=== PATIENT | female | born 1965 | race Caucasian/White ===

== ENCOUNTER 2016-11-23 18:21 | Emergency (ER) | payer OTHER ==
[~2016-11-23] VITALS: Ht 154.9 cm; Wt 61.4 kg
[~2016-11-23 18:21] MED LIST: BTLAI INJ; CAFF200T13 PO; CALCTAB5 PO; CYAN3INJ IM; DICL1GEL12 TOP; ERGO500037 PO; MULT-506 PO; NRN600 PO; POTA1080 PO; SODI650T8 PO; TRAZ100T29 PO; ZLF/100 PO
[2016-11-23 18:36] VITALS: TEMP 36.5; Ht 154.9 cm; Wt 61.4 kg
[2016-11-23] MEDS ORDERED: MoRPHine SULFATE 2 MG/ML CARP IV STA (20:28)
[2016-11-23] MEDS ORDERED: ONDANSETRON INJ 2 MG/ML 2 ML VIAL IV STA (20:28)
[2016-11-23] MEDS ORDERED: PRT/40 PO (20:38)
[2016-11-23] MEDS ORDERED: ONDA4TAB9 PO (20:39)
[2016-11-23] MEDS ORDERED: BSP15 PO (20:39)
[2016-11-23] MEDS ORDERED: VITAMIN B12 INJ INJ (20:46)
[2016-11-23] MEDS ORDERED: CALC-393 PO (20:46)
[2016-11-23 20:53] LABS: URINE APPEARANCE CLEAR (CLEAR); URINE BILIRUBIN NEG (NEG); URINE COLOR YELLOW; URINE NITRITE NEG (NEG); UROBILINOGEN NEG (NEG)
[2016-11-23 21:04] LABS: MANUAL MICROSCOPIC REQUIRED? NO; REVIEW REQ? NO
--- NOTE | 2016-11-23 21:14 | DIAGNOSTIC IMAGING REPORT ---
CT OF THE ABDOMEN AND PELVIS WITHOUT CONTRAST, STONE PROTOCOL CLINICAL HISTORY: Left flank pain. Evaluate for stone. COMPARISON STUDY: CT of the abdomen and pelvis June 24, 2015. TECHNIQUE: Helical axial images of the abdomen and pelvis were obtained without IV or oral contrast according to renal stone protocol. FINDINGS: There are a few punctate left renal calculi. There are no ureteral calculi. There is no hydronephrosis. Evaluation the remainder of the abdomen and pelvis is suboptimal on this unenhanced exam. There are findings consistent with a gastric bypass. There is no evidence for a bowel obstruction. The gallbladder surgically absent. Unenhanced images of liver, spleen, adrenal glands and pancreas are normal. No lymphadenopathy is present. There is no ascites. No suspicious skeletal lesions are identified. There is no perinephric infiltration. The appendix is not visualized. IMPRESSION: 1. Punctate left renal calculi. No ureteral calculi or hydronephrosis. 2. No acute process within the abdomen or pelvis on unenhanced exam. Electronically signed by: Kyle Jamison M.D. 11/23/2016 9:12 PM Dictated Date/Time: 11/23/2016 9:08 PM
[2016-11-23 22:04] LABS: BASO % 0.5 %; BASO ABS # 0.03 K/uL (0-0.2); COMPLETE YES; EOS % 8.1 %; HEMATOCRIT 37.4 % (37-47); IG% 0.3 %; LYMPH % 35.4 %; LYMPH ABS # 2.28 K/uL (1.2-3.4); MEAN CELL VOLUME 91.4 fL (80-100); MEAN CORPUSCULAR HEMOGLOBIN 31.8 pg (25-34); MEAN CORPUSCULAR HGB CONC 34.8 g/dl (32-36); MEAN PLATELET VOLUME 10.6 fL (7.4-10.4); MONO % 10.7 %; PLATELET COUNT 282 K/uL (130-400); RED BLOOD COUNT 4.09 M/uL (4.2-5.4); WHITE BLOOD COUNT 6.44 K/uL (4.8-10.8)
[2016-11-23 22:23] LABS: ALT/SGPT 34 U/L (12-78); BLOOD UREA NITROGEN 17 mg/dl (7-18); BUN/CREATININE RATIO 19.9 (10-20); CALCIUM 8.9 mg/dl (8.5-10.1); CARBON DIOXIDE 27 mmol/L (21-32); CHLORIDE 107 mmol/L (98-107); CREATININE 0.85 mg/dl (0.60-1.20); GLUCOSE 84 mg/dl (70-99); POTASSIUM 3.9 mmol/L (3.5-5.1); SODIUM 142 mmol/L (136-145)
[2016-11-23 22:26] LABS: ALKALINE PHOSPHATASE 52 U/L (45-117); AST/SGOT 26 U/L (15-37)
[2016-11-23] MEDS ORDERED: AMOX875T PO (22:48)
[2016-11-23] MEDS ORDERED: AMOXICILLIN/CLAVULANATE TAB 875 MG TAB PO ONE (23:00)
[2016-11-23] MEDS ORDERED: PERCOCET HOME PACK PO ONE (23:00)
[2016-11-23 23:22] VITALS: BP 103/59; PULSE 62; O2SAT 98
--- NOTE | 2016-11-23 23:59 | EMERGENCY ROOM VISIT NOTE ---
History Report prepared by Barakibe: Deepika Elaine Under the Supervision of: Dr. Bud Mullen M.D. First contact with patient: 20:20 Chief Complaint: ILLNESS Stated Complaint: BIG BITE ON EAR AND KIDNEY INFECTION History of Present Illness The patient is a 51 year old female who presents to the Emergency Room with complaints of persistent left sided flank pain for the past 2 weeks. She rates her pain as a 7/10 in severity and admits to a history of kidney stones and kidney infections. She denies any chance of being as she has undergone a hysterectomy. She states her urine has been dark in color and foul smelling. She has had urinary burning for about 2 weeks as well. She states she could not get into her doctor. She has been nauseous but has not vomited. The patient also complains of a possible bug bite on her left ear that occurred about 2 months ago. She states the area feels raised and has not improved at all since it first occurred. She denies any recent fevers. 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 A total of 10 systems reviewed and were otherwise negative. Past Medical & Surgical Medical Problems: (1) ADHD (attention deficit hyperactivity disorder) (2) BALDEV (acute kidney injury) (3) Anxiety (4) Anxiety disorder, unspecified (5) Aortic regurgitation (6) Chest pain (7) CKD (chronic kidney disease), stage III (8) Depression (9) Dyslipidemia (10) Fibromyalgia (11) GERD (gastroesophageal reflux disease) (12) History of gastric ulcer (13) Hx of Clostridium difficile infection (14) Kidney stone (15) Migraine (16) Oral thrush (17) Orthostatic hypotension (18) past med trials (19) Recurrent Clostridium difficile diarrhea Surgical Problems: (1) H/O esophagogastroduodenoscopy (2) H/O gastric bypass (3) H/O lumpectomy (4) History of hip surgery (5) History of ureter stent (6) S/P gastric bypass (7) S/P Lysis of Adhesions (8) S/P PATRICE (total abdominal hysterectomy) (9) Status post appendectomy (10) Status post cholecystectomy (11) Status post cholecystectomy Family History FH: cancer FHx: heart disease FATHER ([place] age 39) MOTHER ([place] age 57) Hypertension Kidney disease Kidney stones Seizures Stroke MOTHER (in 40s) Social History Smoking Status: Never Smoker Alcohol Use: none Drug Use: none Marital Status: Housing Status: lives with family Occupation Status: disabled Current/Historical Medications Scheduled Amoxicillin & Pot Clavulanate (Augmentin 875-125 mg), 875 MG PO BID Botulinum Toxin Type A (Botox), 1 DOSE INJ [id number] Buspirone HCl (Buspirone HCl), 15 MG PO BID Caffeine (Caffeine), 200 MG PO DAILY Calcium Carbonate (Calcium), 600 MG PO BID Ergocalciferol (Vitamin D 41378 Unit), 50,000 INTER.UNIT PO 2XWK Gabapentin (Gabapentin), 600 MG PO TID Multivitamin (Multivitamin), 1 TAB PO BID Pantoprazole (Pantoprazole Sodium), 40 MG PO DAILY Potassium Citrate (Alkalinizer (Potassium Citrate ER), 1,080 MG PO TID Sertraline HCl (Sertraline HCl), 100 MG PO DAILY Sodium Bicarbonate (Sodium Bicarbonate), 650 MG PO BID [Vitamin B12 Inj], 1 DOSE INJ MONTHLY Scheduled PRN Diclofenac Sodium (Topical) (Voltaren 1% Top Gel), 1 APPLN TOP TID PRN for Pain Ondansetron (Ondansetron HCl), 4-8 MG PO TID PRN for Nausea Trazodone Hcl (Trazodone), 200 MG PO HS PRN for Sleep Allergies Coded Allergies: Cephalexin (Verified Allergy, Severe, THROAT CLOSING, 09/04/16) RASH, HIVES Clindamycin (Verified Allergy, Severe, HIVES, 09/04/16) Hydromorphone (Verified Allergy, Severe, ANAPHYLAXIS, 09/04/16) NEEDS NARCAN Meperidine (Verified Allergy, Severe, ANAPHYLAXIS, 09/04/16) PER UNCODED ALLERGY PJ. MORPHINE 02/2015 Lactase (Verified Allergy, Intermediate, ., 09/04/16) Per Nurse: Lactaid was the only thing new and patient had rash and redness on her arms. Latex1 -Allergic Contact Dermititis (Verified Allergy, Intermediate, RASH , 09/04/16) Sulfa Antibiotics (Verified Allergy, Intermediate, rash and severe rash, 09/04/16) Metoclopramide (Verified Allergy, Unknown, 09/04/16) Physical Exam Vital Signs Date Time Temp Pulse Resp B/P Pulse Ox O2 Delivery O2 Flow Rate FiO2 11/23/16 23:22 62 16 103/59 98 Room Air 11/23/16 21:12 60 18 102/59 99 Room Air 11/23/16 18:36 36.5 71 18 116/75 98 Room Air Physical Exam Constitutional: Vital signs reviewed. Eyes: Pupils are equal round reactive to light. Conjunctiva are noninjected. ENT: Pharynx is clear without erythema or exudate. Mucous membranes are moist. Neck supple without meningeal signs. Respiratory: Clear to auscultation bilaterally. Breath sounds are equal bilaterally. Cardiovascular: Regular rate and rhythm. No rubs or gallops. GI: Soft, nondistended. LLQ tenderness, no guarding. Bowel sounds are present. Musculoskeletal: No peripheral edema. No lower extremity tenderness. No CVA tenderness. Integumentary: Subcentimeter erythematous lesion with excoriation, no surrounding cellulitis. Neurological: The patient is awake and alert. No focal deficits. Psychiatric: Normal affect. Medical Decision & Procedures ER Provider Diagnostic Interpretation: This CT scan was reviewed and interpreted by the radiologist and reviewed by myself. CT OF THE ABDOMEN AND PELVIS WITHOUT CONTRAST, STONE PROTOCOL CLINICAL HISTORY: Left flank pain. Evaluate for stone. COMPARISON STUDY: CT of the abdomen and pelvis June 24, 2015. TECHNIQUE: Helical axial images of the abdomen and pelvis were obtained without IV or oral contrast according to renal stone protocol. FINDINGS: There are a few punctate left renal calculi. There are no ureteral calculi. There is no hydronephrosis. Evaluation the remainder of the abdomen and pelvis is suboptimal on this unenhanced exam. There are findings consistent with a gastric bypass. There is no evidence for a bowel obstruction. The gallbladder surgically absent. Unenhanced images of liver, spleen, adrenal glands and pancreas are normal. No lymphadenopathy is present. There is no ascites. No suspicious skeletal lesions are identified. There is no perinephric infiltration. The appendix is not visualized. IMPRESSION: 1. Punctate left renal calculi. No ureteral calculi or hydronephrosis. 2. No acute process within the abdomen or pelvis on unenhanced exam. Electronically signed by: Kyle Jamison M.D. 11/23/2016 9:12 PM Laboratory Results 11/23/16 21:50 Red Blood Count 4.09, Mean Corpuscular Volume 91.4, Mean Corpuscular Hemoglobin 31.8, Mean Corpuscular Hemoglobin Concent 34.8, Mean Platelet Volume 10.6, Neutrophils (%) (Auto) 45.0, Lymphocytes (%) (Auto) 35.4, Monocytes (%) (Auto) 10.7, Eosinophils (%) (Auto) 8.1, Basophils (%) (Auto) 0.5, Neutrophils # (Auto ) 2.90, Lymphocytes # (Auto) 2.28, Monocytes # (Auto) 0.69, Eosinophils # (Auto ) 0.52, Basophils # (Auto) 0.03 11/23/16 21:50 Test 11/23/16 20:20 11/23/16 21:50 Urine Color YELLOW Urine Appearance CLEAR (CLEAR) Urine pH 7.0 (4.5-7.5) Urine Specific [place] 1.010 (1.000-1.030) Urine Protein NEG (NEG) Urine Glucose (UA) NEG (NEG) Urine Ketones NEG (NEG) Urine Occult Blood NEG (NEG) Urine Nitrite NEG (NEG) Urine Bilirubin NEG (NEG) Urine Urobilinogen NEG (NEG) Urine Leukocyte Esterase TRACE (NEG) Urine WBC (Auto) 5-10 /hpf (0-5) Urine RBC (Auto) 0-4 /hpf (0-4) Urine Hyaline Casts (Auto) 0 /lpf (0-5) Urine Epithelial Cells (Auto) 10-20 /lpf (0-5) Urine Bacteria (Auto) NEG (NEG) White Blood Count 6.44 K/uL (4.8-10.8) Red Blood Count 4.09 M/uL (4.2-5.4) Hemoglobin 13.0 g/dL (12.0-16.0) Hematocrit 37.4 % (37-47) Mean Corpuscular Volume 91.4 fL (80-100) Mean Corpuscular Hemoglobin 31.8 pg (25-34) Mean Corpuscular Hemoglobin Concent 34.8 g/dl (32-36) Platelet Count 282 K/uL (130-400) Mean Platelet Volume 10.6 fL (7.4-10.4) Neutrophils (%) (Auto) 45.0 % Lymphocytes (%) (Auto) 35.4 % Monocytes (%) (Auto) 10.7 % Eosinophils (%) (Auto) 8.1 % Basophils (%) (Auto) 0.5 % Neutrophils # (Auto) 2.90 K/uL (1.4-6.5) Lymphocytes # (Auto) 2.28 K/uL (1.2-3.4) Monocytes # (Auto) 0.69 K/uL (0.11-0.59) Eosinophils # (Auto) 0.52 K/uL (0-0.5) Basophils # (Auto) 0.03 K/uL (0-0.2) RDW Standard Deviation 42.0 fL (36.4-46.3) RDW Coefficient of Variation 12.5 % (11.5-14.5) Immature Granulocyte % (Auto) 0.3 % Immature Granulocyte # (Auto) 0.02 K/uL (0.00-0.02) Anion Gap 8.0 mmol/L (3-11) Est Creatinine Clear Calc Drug Dose 66.5 ml/min Estimated GFR () 92.6 Estimated GFR (Non- 79.9 BUN/Creatinine Ratio 19.9 (10-20) Calcium Level 8.9 mg/dl (8.5-10.1) Total Bilirubin 0.2 mg/dl (0.2-1) Direct Bilirubin < 0.1 mg/dl (0-0.2) Aspartate Amino Transf (AST/SGOT) 26 U/L (15-37) Alanine Aminotransferase (ALT/SGPT) 34 U/L (12-78) Alkaline Phosphatase 52 U/L (45-117) Total Protein 6.2 gm/dl (6.4-8.2) Albumin 3.4 gm/dl (3.4-5.0) Lipase 262 U/L (73-393) Laboratory results as reviewed by me. Medications Administered Medications (Trade) Dose Ordered Sig/Fidel Route Start Time Stop Time Status Last Admin Dose Admin Ondansetron HCl (Zofran Inj) 4 mg NOW STAT IV 11/23/16 20:28 11/23/16 20:31 DC 11/23/16 21:15 4 MG Morphine Sulfate (MoRPHine SULFATE INJ) 2 mg NOW STAT IV 11/23/16 20:28 11/23/16 20:31 DC 11/23/16 21:14 2 MG Amoxicillin/ Clavulanate Potassium (Augmentin Tab) 875 mg ONE ONCE PO 11/23/16 23:00 11/23/16 23:01 DC 11/23/16 23:23 875 MG ED Course 2021: The patient was evaluated in room A4B. A complete history and physical exam was performed. 2027: Morphine Sulfate 2 mg IV, Zofran 4 mg IV. 2239: I reevaluated the patient. She is feeling better. I discussed her test results and discharge instructions and she verbalized complete understanding and agreement. 2299: Percocet 5/325 mg 1 home pack PO, Augmentin 875 mg PO. Medical Decision This is a 51-year-old female who presents with left ear pain and flank pain with urinary symptoms. Differential diagnosis includes infected bug bite, kidney stone, UTI, pyelonephritis, diverticulitis. I did perform a limited focused review of portions of the patient's old chart on the electronic medical record. The patient saw Pain Management last month for chronic migraines and given Botox. I did evaluate the patient as noted above. IV access was established. The patient was treated with IV morphine and Zofran. She did state that she had a ride home. I did order and personally review the patient's urinalysis as described above. I did send a urine culture. I did order and review the patient's blood work as noted in the electronic medical record. I did order a CT of the abdomen and pelvis. I did review the images myself as well as the radiology report as described above. There is no evidence of acute intra- abdominal process. I did discuss the test results with the patient. She is feeling better. She did wish to be treated with antibiotics for her ear although no significant cellulitis was detected. I did feel this was reasonable as she is not having any improvement for 2 weeks. I did treat her with Augmentin to cover both urinary and skin pathogens. She was discharged with a prescription for Augmentin. She was given a Percocet home pack per her request. She will follow up with her doctor. Impression Primary Impression: Flank pain Additional Impressions: Dysuria Infection of left ear Scribe Attestation The scribe's documentation has been prepared under my direct and personally reviewed by me in its entirety. I confirm that the note above accurately reflects all work, treatment, procedures, and medical decision making performed by me. Departure Information Dispostion Home / Self-Care Prescriptions Amoxicillin & Pot Clavulanate (Augmentin 875-125 mg) 1 Tab Tab 875 MG PO BID, #20 TAB Prov: Bud Mullen M.D. 11/23/16 Referrals Faisal Dela Cruz M.D.([facility]) (PCP) Patient Instructions Dysuria, ED Flank Pain Uncertain Cause, My [facility] Additional Instructions You have been examined and treated today on an emergency basis only. This is not a substitute for, or an effort to provide, complete comprehensive medical care. It is impossible to recognize and treat all injuries or illnesses in a single emergency department visit. It is therefore important that you follow up closely with your physician. Call as soon as possible for an appointment. Return for worsening symptoms or if you develop fever, vomiting, or any other concerning symptoms. Problem Qualifiers
[2016-12-13] MEDS ORDERED: SERT-234 PO (10:32)
[2016-12-13] MEDS ORDERED: RANI300T2 PO (10:34)
[2016-12-13] MEDS ORDERED: BIOT1CAP8 PO (10:34)
[2016-12-13] MEDS ORDERED: STR10 PO (10:34)
[2016-12-13] MEDS ORDERED: COLLAGEN PO (10:34)
== END 2016-11-23 23:26 | disposition home or self-care (01) ==
LOC: C.EDB 18:23 → C.EDA 23:26
DX: R10.9 Unspecified abdominal pain (principal); R30.0 Dysuria; L08.9 Local infection of the skin and subcutaneous tissue, unspecified; F90.9 Attention-deficit hyperactivity disorder, unspecified type; K21.9 Gastro-esophageal reflux disease without esophagitis; Z98.84 Bariatric surgery status; N20.0 Calculus of kidney; E78.5 Hyperlipidemia, unspecified; N18.3 Chronic kidney disease, stage 3 (moderate); Z82.3 Family history of stroke; Z84.1 Family history of disorders of kidney and ureter; Z82.49 Family history of ischemic heart disease and other diseases of the circulatory system; Z82.0 Family history of epilepsy and other diseases of the nervous system; F41.9 Anxiety disorder, unspecified

== ENCOUNTER → 2016-12-20 | Day surgery (SDC) | payer OTHER ==
[2016-12-13 10:34] VITALS: Ht 156.2 cm; Wt 54.5 kg
[~2016-12-20] VITALS: Ht 156.2 cm; Wt 54.5 kg
[~2016-12-20] MED LIST changes: +BIOT1CAP8 PO; +BSP15 PO; +CALC-393 PO; -CALCTAB5 PO; +COLLAGEN PO; -CYAN3INJ IM; +LIDOCAINE HCL 2% 2 ML VIAL (20MG/ML) ONE; +MIDAZOLAM HCL 1 MG/ML 2ML VIAL ONE; +ONDA4TAB9 PO; +PROPOFOL IV EMULSION 10 MG/ML 20 ML VIAL IV ONE; +RANI300T2 PO; +SERT-234 PO; +SODIUM CHLORIDE 0.9% 500ML 500 ML IV ONE; +STR10 PO; +VITAMIN B12 INJ INJ; -ZLF/100 PO
--- NOTE | 2016-12-20 09:10 | Endo History and Physical ---
History & Physical Date of Service: Dec 20, 2016. Chief Complaint: epigastric pain ,history of peptic ulcer Referring Physician: Dr. Faisal Dela Cruz History of Present Illness Epigastric pain, s/p RYGB Past Medical History Osteoporosis, Reflux, Syncopal Episodes, Kidney Disease, Depression Past Surgical History Hx Cardiac Surgery: No Hx Internal Defibrillator: No Hx Pacemaker: No Hx Abdominal Surgery: Yes (GASTRIC BYPASS, RUPTURED OVARIAN CYST, PATRICE BSO, LAPARASCOPIES, APPY, INDIRA) Hx Post-Op Nausea and Vomiting: No Hx Cancer Surgery: No Hx Thoracic Surgery: No Hx Orthopedic: Yes (LT ANKLE SX WITH HARDWARE AND REMOVAL, LEFT HIP SX) Hx Urinary Tract Surgery: Yes (KIDNEY STENTS AND REMOVAL) Family History Polyp Social History Smoking Status: Never Smoker Hx Substance Use: No Hx Alcohol Use: Yes (RARELY) Allergies Coded Allergies: Cephalexin (Verified Allergy, Severe, THROAT CLOSING, 12/13/16) RASH, HIVES Clindamycin (Verified Allergy, Severe, HIVES, 12/13/16) Hydromorphone (Verified Allergy, Severe, ANAPHYLAXIS, 12/13/16) NEEDS NARCAN Meperidine (Verified Allergy, Severe, ANAPHYLAXIS, 12/13/16) PER UNCODED ALLERGY PJ. MORPHINE 02/2015 Lactase (Verified Allergy, Intermediate, ., 12/13/16) Per Nurse: Lactaid was the only thing new and patient had rash and redness on her arms. Latex1 -Allergic Contact Dermititis (Verified Allergy, Intermediate, RASH , 12/13/16) Sulfa Antibiotics (Verified Allergy, Intermediate, rash and severe rash, ) Metoclopramide (Verified Allergy, Unknown, 12/13/16) Current Medications Reported Home Medications Medications Dose Route/Sig Max Daily Dose Days Date Category Dose Instructions Strattera (Atomoxetine HCl) 10 Mg Cap 10 Mg PO QAM 12/13/16 Reported Zantac (Ranitidine HCl) 300 Mg Tab 300 Mg PO BID 12/13/16 Reported [Collagen] 1 Cap PO BID 12/13/16 Reported Biotin 1 Mg Cap 1 Cap PO BID 12/13/16 Reported Zoloft (Sertraline HCl) 100 Mg Tab 100 Mg PO QAM 12/13/16 Reported [Vitamin B12 Inj] 1 Dose INJ MONTHLY 11/23/16 Reported Calcium (Calcium Carbonate) 600 Mg Tab 600 Mg PO BID 11/23/16 Reported Trazodone (Trazodone HCl) 100 Mg Tab 200 Mg PO HS PRN 10/12/16 Reported Buspirone HCl 15 Mg Tab 15 Mg PO BID 10/11/16 Reported Ondansetron HCl (Ondansetron) 4 Mg Tab 4-8 Mg PO TID PRN 10/11/16 Reported Voltaren 1% Top Gel (Diclofenac Sodium (Topical)) 1 % Gel 1 Appln TOP TID PRN 09/04/16 Reported Sodium Bicarbonate 650 Mg Tab 650 Mg PO BID 06/26/16 Reported Caffeine 200 Mg Tab 200 Mg PO QAM 06/13/16 Reported Multivitamin (Multivitamins) Tab 1 Tab PO BID 06/13/16 Reported Gabapentin 600 Mg Tab 600 Mg PO TID 06/11/16 Reported Potassium Citrate ER (Potassium Citrate (Alkalinizer) 1,080 Mg Tab 1,080 Mg PO TID 06/11/16 Reported Vitamin D 98861 Unit (Ergocalciferol) 50,000 Unit Cap 50,000 Inter.unit PO 2XWK 03/03/16 Reported TAKE THIS MEDICATION EVERY SUNDAY AND SUNDAY Botox (Botulinum Toxin Type A) 100 Units Inj 1 Dose INJ [id number] 02/18/15 Reported INJECT ACCORDING TO THE PREEMPT PROTOCOL FOR CHRONIC MIGRAINE Vital Signs Weight (Kilograms): 54.55 Height (Feet): 5 Height (Inches): 1.5 Date Time Temp Pulse Resp B/P Pulse Ox O2 Delivery O2 Flow Rate FiO2 12/20/16 08:57 36.8 91 18 139/76 96 Room Air Physical Exam General Appearance: WD/WN, no apparent distress Respiratory/Chest: Auscultation: breath sounds normal, no rales/crackles Cardiovascular: Heart Auscultation: RRR, no murmurs Abdomen: Inspection & Palpation: soft, no tenderness, guarding & rebound Assessment and Plan For EGD
--- NOTE | 2016-12-20 09:30 | GI REPORT ---
Procedure Date: 12/20/2016 9:04 AM Procedure: Upper GI endoscopy Indications: Epigastric abdominal pain Medicines: Monitored Anesthesia Care Complications: No immediate complications. Estimated blood loss: None. Estimated Blood Loss: Estimated blood loss: none. Procedure: Pre-Anesthesia Assessment: - Prior to the procedure, a History and Physical was performed, and patient medications, allergies and sensitivities were reviewed. The patient's tolerance of previous anesthesia was reviewed. - ASA Grade Assessment: III - A patient with severe systemic disease. After obtaining informed consent, the endoscope was passed under direct vision. Throughout the procedure, the patient's blood pressure, pulse, and oxygen saturations were monitored continuously. The Scope was introduced through the mouth, and advanced to the jejunum. The upper GI endoscopy was accomplished with ease. The patient tolerated the procedure well. Findings: The upper third of the esophagus, middle third of the esophagus and lower third of the esophagus were normal. The Z-line was regular and was found 35 cm from the incisors. Biopsies were taken with a cold forceps for histology. Evidence of a gastric bypass was found. A gastric pouch with a small size was found. The staple line appeared intact. The gastrojejunal anastomosis was characterized by healthy appearing mucosa. This was traversed. Biopsies were taken with a cold forceps for Helicobacter pylori testing. The examined jejunum was normal. Biopsies for histology were taken with a cold forceps for evaluation of celiac disease. Verification of patient identification for the specimens was done by the physician and nurse using the patient's name, date and medical record number. Impression: - Normal upper third of esophagus, middle third of esophagus and lower third of esophagus. - Z-line regular, 35 cm from the incisors. Biopsied. - Gastric bypass with a small-sized pouch and intact staple line. Gastrojejunal anastomosis characterized by healthy appearing mucosa. Biopsied. - Normal examined jejunum. Biopsied. Recommendation: - Await pathology results. - Piccsy Advance Vlad Cleveland M.D. Vlad Cleveland MD 12/20/2016 9:30:08 AM This report has been signed electronically. Note Initiated On: 12/20/2016 9:04 AM I attest to the content of the Intraoperative Record and orders documented therein, exceptions below
--- NOTE | 2016-12-20 09:31 | Discharge Instructions ---
Endoscopy Patient Instructions Date / Procedure(s) Performed Dec 20, 2016. EGD Allergy Information Coded Allergies: Cephalexin (Verified Allergy, Severe, THROAT CLOSING, 12/13/16) RASH, HIVES Clindamycin (Verified Allergy, Severe, HIVES, 12/13/16) Hydromorphone (Verified Allergy, Severe, ANAPHYLAXIS, 12/13/16) NEEDS NARCAN Meperidine (Verified Allergy, Severe, ANAPHYLAXIS, 12/13/16) PER UNCODED ALLERGY PJ. MORPHINE 02/2015 Lactase (Verified Allergy, Intermediate, ., 12/13/16) Per Nurse: Lactaid was the only thing new and patient had rash and redness on her arms. Latex1 -Allergic Contact Dermititis (Verified Allergy, Intermediate, RASH , 12/13/16) Sulfa Antibiotics (Verified Allergy, Intermediate, rash and severe rash, ) Metoclopramide (Verified Allergy, Unknown, 12/13/16) Discharge Date / Findings Dec 20, 2016. Normal Adamaris-en-Y gastric bypass, biopsies pending Medication Instructions Restart Stopped Medication(s): Restart medications today Use Gaviscon Advance (available through [employer]). This is different than Gaviscon locally available. It contains sodium alginate. Provider Instructions Activity Restrictions - No exercising or heavy lifting for 24 hours. - Do not drink alcohol the day of the procedure. - Do not drive a car or operate machinery until the day after the procedure. - Do not make any important decisions or sign important papers in 24 hours after the procedure. Following Day: - Return to full activity which may include returning to work/school. Diet Start your diet with liquids and light foods (jello, soup, juice, toast). Then eat your usual diet if not nauseated. Treatment For Common After Affects For mild abdominal pain, bloating, or excessive gas: - Rest - Eat lightly - Lie on right side Follow-Up Information Follow-up with Dr. Faisal Dela Cruz as scheduled Anesthesia Information What You Should Know You have had a procedure that required some medicine to reduce anxiety and discomfort. This treatment is called moderate sedation. After receiving the treatment, you may be sleepy, but you will be able to breathe on your own. The effects of the treatment may last for several hours. Follow these instructions along with Activity/Diet recommendations noted above: * Do NOT do anything where dizziness or clumsiness would be dangerous. * Rest quietly at home today, then you can be up and about tomorrow. * Have a responsible person stay with you the rest of today. * You may have had an I.V. today. If so, you may take the dressing off later today. Recommendations Call your doctor if: * Trouble breathing * Continuous vomiting for more than 24 hours * Temperature above 101 degrees * Severe abdominal pain or bloating * Pain not relieved by pain medicine ordered * There is increased drainage or redness from any incision * A large amount of rectal bleeding greater than 2-3 tablespoons. (If you had a polyp/s removed or have hemorrhoids, a small amount of blood - from the rectum is to be expected.) * You have any unanswered questions or concerns. IN THE EVENT OF A SERIOUS EMERGENCY, GO TO THE NEAREST EMERGENCY ROOM Your discharge instructions were prepared by provider Vlad Cleveland. Patient Instructions Signature Page Mellisa Chandler Patient (or Guardian) Signature/Date: I have read and understand the instructions given to me by my caregivers. Caregiver/RN/Doctor Signature/Date: The above-named patient and/or guardian has received patient instructions on this date. + Original Patient Signature Page (only) stays with chart. Please make copy for patient.
[2016-12-20 10:02] VITALS: BP 117/67; PULSE 78; O2SAT 97
--- NOTE | 2016-12-20 10:11 | Anesthesiology Progress Note ---
Anesthesia Post Op Note Date & Time Dec 20, 2016 at 10:11 Vital Signs Pain Intensity: 7 Vital Signs Past 12 Hours Date Time Temp Pulse Resp B/P Pulse Ox O2 Delivery O2 Flow Rate FiO2 12/20/16 10:02 78 20 117/67 97 Room Air 12/20/16 09:44 78 20 97/58 99 Room Air 12/20/16 09:33 77 20 106/61 99 Room Air 12/20/16 08:57 36.8 91 18 139/76 96 Room Air Notes Mental Status: alert / awake / arousable, participated in evaluation Pt Amnestic to Procedure: Yes Nausea / Vomiting: adequately controlled Pain: adequately controlled Airway Patency, RR, SpO2: stable & adequate BP & HR: stable & adequate Hydration State: stable & adequate Anesthetic Complications: no major complications apparent
== END | disposition home or self-care (01) ==
LOC: C.GI 08:23
PROVIDERS: ATTEND Internal Medicine Gastroenterology
DX: R10.13 Epigastric pain (principal); K21.9 Gastro-esophageal reflux disease without esophagitis; Z98.84 Bariatric surgery status; M81.0 Age-related osteoporosis without current pathological fracture; N18.9 Chronic kidney disease, unspecified; R55 Syncope and collapse; F32.9 Major depressive disorder, single episode, unspecified; Z88.1 Allergy status to other antibiotic agents; Z88.2 Allergy status to sulfonamides; Z98.890 Other specified postprocedural states

== ENCOUNTER → 2017-03-14 | Outpatient (CLI) | payer OTHER ==
[~2017-03-14] MED LIST changes: -LIDOCAINE HCL 2% 2 ML VIAL (20MG/ML) ONE; +MAGN400T6 PO; -MIDAZOLAM HCL 1 MG/ML 2ML VIAL ONE; -PROPOFOL IV EMULSION 10 MG/ML 20 ML VIAL IV ONE; -SODIUM CHLORIDE 0.9% 500ML 500 ML IV ONE; +estrogen
--- NOTE | 2017-03-14 14:43 | DIAGNOSTIC IMAGING REPORT ---
C-SPINE ROUTINE 4 OR 5 VIEWS CLINICAL HISTORY: NECK PAIN COMPARISON STUDY: No previous studies for comparison. FINDINGS: The prevertebral soft tissues are normal. There are degenerative changes present at the C6-7 level with disc space narrowing. There is no bony foraminal stenosis. No fractures are visualized. IMPRESSION: Mild degenerative changes at the C6-7 level. No fractures, subluxations, or destructive lesions are visualized Electronically signed by: Bobby Gottlieb M.D. 03/14/2017 2:42 PM Dictated Date/Time: 03/14/2017 2:41 PM
== END | disposition home or self-care (01) ==
LOC: C.RAD 14:17
PROVIDERS: ATTEND Physician Assistant
DX: M54.2 Cervicalgia (principal)